=== PATIENT | female | born 1945 | race Caucasian/White ===

== ENCOUNTER → 2016-10-19 | Outpatient (CLI) | payer OTHER, MEDICARE | LOC: MMPC 09:00 | PROVIDERS: ATTEND Physician Assistant Medical | DX: R05 Cough (principal); F17.210 Nicotine dependence, cigarettes, uncomplicated; Z86.19 Personal history of other infectious and parasitic diseases | CPT/HCPCS: 99213; G0463 ==

== ENCOUNTER → 2016-10-25 | Outpatient (CLI) | payer OTHER, MEDICARE | LOC: MMPC 09:00 | PROVIDERS: ATTEND Physician Assistant Medical | DX: R05 Cough (principal); F17.210 Nicotine dependence, cigarettes, uncomplicated | CPT/HCPCS: 99213; G0463 ==

== ENCOUNTER → 2016-11-22 | Outpatient (CLI) | payer OTHER, MEDICARE | LOC: MMPC 09:00 | PROVIDERS: ATTEND Family Medicine | DX: E11.9 Type 2 diabetes mellitus without complications (principal); E78.5 Hyperlipidemia, unspecified; E03.9 Hypothyroidism, unspecified; Z78.0 Asymptomatic menopausal state | CPT/HCPCS: 99214; G0463 ==

== ENCOUNTER → 2016-11-30 | Outpatient (CLI) | payer OTHER, MEDICARE ==
[2016-11-30 09:30] LABS: HEMATOCRIT 39.6 % (37.0-47.0); HEMOGLOBIN 12.7 g/dL (12.0-16.0); MEAN CORPUSCULAR HEMOGLOBIN 27.3 PG (27-31); MEAN CORPUSCULAR HGB CONC 32.1 g/dL (33-37); MEAN PLATELET VOLUME 11.5 FL (7.4-12.2); RED BLOOD COUNT 4.66 10^6/uL (4.20-5.40)
[2016-11-30 21:03] LABS: CALCIUM 8.7 mg/dL (8.7-10.7); EST GLOMERULAR FILTRATION > 60 (>60 ml/min/1.73m(2))
[2016-11-30 21:04] LABS: SERUM ALBUMIN 3.2 g/dL (3.5-4.8)
[2016-12-01 00:35] LABS: CHOL/HDL RATIO 2.72 RATIO (0-4.0); LDL CHOLESTEROL,CALCULATED 47.8 mg/dL
[2016-12-01 14:06] LABS: HEMOGLOBIN A1C 9.91 % (4.2-6.0)
[2016-12-01 14:55] LABS: FREE T4 (FREE THYROXINE) 1.49 ng/dL (0.93-1.71)
== END ==
LOC: LAB 07:57
PROVIDERS: ATTEND Nurse Practitioner Family
DX: E11.9 Type 2 diabetes mellitus without complications (principal); E03.9 Hypothyroidism, unspecified; E78.5 Hyperlipidemia, unspecified; F17.200 Nicotine dependence, unspecified, uncomplicated
CPT/HCPCS: 36415; 80053; 80061; 83036; 84439; 84443; 85027

== ENCOUNTER 2017-02-23 08:01 | Day surgery (SDC) | payer OTHER, MEDICARE ==
[~2017-02-23 08:01] MED LIST: LIDOCAINE W/ SODIUM BICARB 0.5 ML SYR ONE; Lactated Ringers 1,000 ML PRIMARY IV ONE; MIDAZOLAM 5 MG/1 ML ONE; fentaNYL Inj 100 MCG/2 ML VIAL ONE
--- NOTE | 2017-02-23 09:34 | GEN.OPNOTE ---
Colonoscopy Procedure Note Surgery Date: 02/23/17 Preoperative Diagnosis: Screening for colon cancer Postoperative Diagnosis: Screening for colon cancer Procedure: Colonoscopy Surgeon: Sai Martinez MD Anesthesia Provider: Garret An CRNA Anesthesia Type: MAC Indications: Patient has a family history of colon cancer Findings: Prep : Excellent Cecum : Scope was advanced over the cecum. Ileocecal valve clearly identified along with appendiceal office. Patient normal appearing cecum Ascending : Ascending colons within normal limits no polyps tumors or cancers Transverse : Transverse colon was within normal limits no polyps tumors or cancers Sigmoid : Descending; had no polyps tumors or cancers Rectum : Rectum free from disease Digital Rectal Exam : A lubricated flexible colonoscope was inserted and passed to the blind end of the cecum.
[2017-02-23 09:50] VITALS: RESP 12
[2017-02-23 10:06] VITALS: TEMP 97.5
== END 2017-02-23 10:35 | disposition home or self-care (01) ==
LOC: SDSC 08:01
PROVIDERS: ATTEND Surgery
DX: Z12.11 Encounter for screening for malignant neoplasm of colon (principal); Z80.0 Family history of malignant neoplasm of digestive organs
CPT/HCPCS: G0105; J2250; J2704; J3010; J7120